=== PATIENT | female | born 1995 | race Two or more races ===

== ENCOUNTER → 2022-06-19 | Emergency (ER) | payer OTHER ==
[~2022-06-19] VITALS: Ht 160 cm; Wt 45.4 kg
--- NOTE | 2022-06-19 09:07 | NUR ---
BIB [employer] [facility] FROM HALF-WAY FOR MEDICAL CLEARANCE,BANGED HER FOREHEAD AGAINST A WALL,NO LOC. PT IS AMBULATORY WITH STEADY GAIT. BREATHING EVEN AND UNLABORED.
--- NOTE | 2022-06-19 09:08 | NUR ---
DR. MORALES AT BEDSIDE FOR EVAL
--- NOTE | 2022-06-19 09:17 | NUR ---
PT TAKEN TO CT VIA [facility]
--- NOTE | 2022-06-19 10:03 | NUR ---
Patient discharged to home in stable condition. Written and verbal after care instructions given. Patient verbalizes understanding of instruction. Addendum: 06/19/22 at 1004 by APATANGAN Patient discharged under custody of [employer] in stable condition. Written and verbal after care instructions given. Patient verbalizes understanding of instruction.
[2022-06-19 10:06] VITALS: BP 102/77
== END ==
LOC: ER 08:59
DX: S09.90XA Unspecified injury of head, initial encounter (principal); Z88.8 Allergy status to other drugs, medicaments and biological substances; W22.01XA Walked into wall, initial encounter; Y93.89 Activity, other specified; Y92.149 Unspecified place in prison as the place of occurrence of the external cause; Y99.8 Other external cause status
CPT/HCPCS: 70450-TC